=== PATIENT | male | born 1980 | race Caucasian/White ===

== ENCOUNTER 2019-04-18 18:17 | Emergency (ER) | payer MEDICAID, OTHER ==
[~2019-04-18] VITALS: Ht 175.3 cm; Wt 72.0 kg
[2019-04-18 19:20] VITALS: BP 121/77
[2019-04-18] MEDS ORDERED: PRED20TA PO (19:50)
[2019-04-18] MEDS ORDERED: CYCL-1 PO (19:50)
== END 2019-04-18 19:56 | disposition home or self-care (01) ==
LOC: ER 18:18
DX: M54.12 Radiculopathy, cervical region (principal); F32.9 Major depressive disorder, single episode, unspecified; F10.10 Alcohol abuse, uncomplicated; Z79.899 Other long term (current) drug therapy; Y90.9 Presence of alcohol in blood, level not specified
CPT/HCPCS: 99283

== ENCOUNTER 2020-11-11 08:28 | Emergency (ER) | payer MEDICAID ==
[~2020-11-11] VITALS: Ht 180.3 cm; Wt 60.5 kg
[~2020-11-11 08:28] MED LIST: CYCL-1 PO
[2020-11-11 08:34] VITALS: BP 118/78
[2020-11-11] MEDS ORDERED: bacitracin 15gm ointment TP STA (10:04)
[2020-11-11] MEDS ORDERED: TRAM50TA2 PO (10:24)
[2020-11-11] MEDS ORDERED: IBUP-1986 PO (10:24)
== END 2020-11-11 11:01 | disposition home or self-care (01) ==
LOC: ER 08:28
DX: S63.511A Sprain of carpal joint of right wrist, initial encounter (principal); S60.511A Abrasion of right hand, initial encounter; F32.9 Major depressive disorder, single episode, unspecified; Z72.89 Other problems related to lifestyle; Z79.899 Other long term (current) drug therapy; V19.9XXA Pedal cyclist (driver) (passenger) injured in unspecified traffic accident, initial encounter; Y93.89 Activity, other specified; Y92.89 Other specified places as the place of occurrence of the external cause; Y99.8 Other external cause status
CPT/HCPCS: 29125; 73110; 99283